=== PATIENT | female | born 1990 | race Two or more races ===

== ENCOUNTER 2023-11-24 11:49 | Emergency (ER) | payer BC ==
[~2023-11-24] VITALS: Ht 154.9 cm; Wt 52.6 kg
[2023-11-24 11:55] VITALS: O2SAT 99
[2023-11-24] MEDS ORDERED: HYDROCODONE/APAP 5-325MG TABLET ONE (12:16)
[2023-11-24] MEDS: HYDROCODONE/APAP 5-325MG TABLET PO ONE (12:17)
[2023-11-24 12:24] LABS: BASOPHILS % (AUTO) 0.4 % (0.0-2.0); EOSINOPHILS # (AUTO) 0.1 K/uL (0.0-0.7); EOSINOPHILS % (AUTO) 0.6 % (0.0-7.0); HEMATOCRIT 40.1 % (31.2-41.9); LYMPHOCYTES # (AUTO) 1.6 K/uL (0.8-4.8); MEAN CORPUSCULAR HEMOGLOBIN 26.8 uug (24.7-32.8); MEAN CORPUSCULAR HGB CONC 32 g/dL (32.3-35.6); MONOCYTES # (AUTO) 0.8 K/uL (0.1-1.30); MONOCYTES % (AUTO) 7.9 % (0.0-11.0); NEUTROPHILS # (AUTO) 8.1 K/uL (1.8-8.9); NEUTROPHILS % (AUTO) 76.1 % (38.5-71.5); PLATELET COUNT (AUTO) 207 K/uL (179-408); RED BLOOD CELL COUNT(AUTO) 4.84 MIL/uL (3.63-4.92); RED CELL DISTRIBUTION WIDTH 13.1 % (12.3-17.7); WHITE BLOOD COUNT (AUTO) 10.6 K/uL (3.8-11.8)
[2023-11-24 12:36] LABS: CALCIUM 9.4 mg/dL (8.5-10.1); CARBON DIOXIDE 28 mmol/L (21-32); CHLORIDE 102 mmol/L (98-107); CREATININE 0.5 mg/dL (0.6-1.3); GLUCOSE 96 mg/dL (74-106); POTASSIUM 3.9 mmol/L (3.5-5.1); SODIUM SERUM 137 mmol/L (136-145); UREA NITROGEN, BLOOD 6 mg/dL (7-18)
[2023-11-24 12:39] LABS: DIFFERENTIAL COMMENT 1
[2023-11-24 12:45] LABS: *BILIRUBIN,URIN NEGATIVE (NEGATIVE); *BLOOD, URINE 3+ (NEGATIVE); *CLARITY,URINE CLEAR (CLEAR); *COLOR,URINE YELLOW (YELLOW); *KETONES,URINE NEGATIVE (NEGATIVE); *PROTEIN,URINE NEGATIVE (NEGATIVE); *UROBILINOGEN,URINE 0.2 E.U./dl (NORMAL); LEUKOCYTE ESTERASE ,URINE 1+ (NEGATIVE); NITRITE, URINE NEGATIVE (NEGATIVE); PH,URINE 6.5 (5.0-8.0); UGLUCOSE NEGATIVE (NEGATIVE)
[2023-11-24 12:53] LABS: PREGNANCY TEST SERUM QUAN < 1 miul/L (0-6)
[2023-11-24] MEDS ORDERED: SULF1TAB48 PO (13:26)
[2023-11-24] MEDS ORDERED: PHEN-704 PO (13:26)
[2023-11-24] MEDS ORDERED: ACET1TAB23 PO (13:26)
[2023-11-24] MEDS ORDERED: PHENAZOPYRIDINE HCL 100 MG TABLET ONE (13:28)
[2023-11-24] MEDS ORDERED: SULFAMETH/TRIMETH 800/160 MG TABLET ONE (13:28)
[2023-11-24] MEDS: SULFAMETH/TRIMETH 800/160 MG TABLET PO ONE (13:29)
[2023-11-24] MEDS: PHENAZOPYRIDINE HCL 100 MG TABLET PO ONE (13:29)
--- NOTE | 2023-11-24 13:32 | NUR ---
Patient discharged to home in stable condition. Written and verbal after care instructions given. Patient verbalizes understanding of instructions. Stressed follow up or return to ER for worsening s/s.
[2023-11-24 15:17] LABS: BACTERIA,URINE FEW /HPF (NONE SEEN); SQUAMOUS EPITHELIAL CELL,UR FEW /HPF (NONE SEEN)
== END 2023-11-24 13:42 | disposition home or self-care (01) ==
LOC: ER 11:50
DX: N30.90 Cystitis, unspecified without hematuria (principal); R10.2 Pelvic and perineal pain; Z79.1 Long term (current) use of non-steroidal anti-inflammatories (NSAID); Z79.899 Other long term (current) drug therapy
CPT/HCPCS: 36415; 76856; 85025; A4606; A4663

== ENCOUNTER 2023-12-18 17:33 | Emergency (ER) | payer BC ==
[~2023-12-18] VITALS: Ht 154.9 cm; Wt 51.3 kg
[~2023-12-18 17:33] MED LIST: ACET1TAB23 PO; PHEN-704 PO; SULF1TAB48 PO
[2023-12-18 17:52] LABS: BASOPHILS % (AUTO) 0.3 % (0.0-2.0); EOSINOPHILS # (AUTO) 0.1 K/uL (0.0-0.7); EOSINOPHILS % (AUTO) 1.1 % (0.0-7.0); HEMATOCRIT 35.8 % (31.2-41.9); HEMOGLOBIN 11.6 g/dL (10.9-14.3); LYMPHOCYTES # (AUTO) 1.6 K/uL (0.8-4.8); LYMPHOCYTES % (AUTO) 28.5 % (20.5-51.5); MEAN CORPUSCULAR HEMOGLOBIN 26.9 uug (24.7-32.8); MEAN CORPUSCULAR HGB CONC 33 g/dL (32.3-35.6); MEAN CORPUSCULAR VOLUME 82.6 fL (75.5-95.3); MONOCYTES # (AUTO) 0.6 K/uL (0.1-1.30); MONOCYTES % (AUTO) 11.4 % (0.0-11.0); NEUTROPHILS # (AUTO) 3.3 K/uL (1.8-8.9); NEUTROPHILS % (AUTO) 58.7 % (38.5-71.5); PLATELET COUNT (AUTO) 188 K/uL (179-408); RED BLOOD CELL COUNT(AUTO) 4.33 MIL/uL (3.63-4.92); WHITE BLOOD COUNT (AUTO) 5.7 K/uL (3.8-11.8)
[2023-12-18 17:53] LABS: DIFFERENTIAL COMMENT 1
[2023-12-18 18:11] LABS: ALBUMIN 4.2 g/dL (3.4-5.0); BILIRUBIN,DIRECT 0.1 mg/dL (0.0-0.2); BILIRUBIN,TOTAL 0.2 mg/dL (0.2-1.0); CALCIUM 9.3 mg/dL (8.5-10.1); CREATININE 0.6 mg/dL (0.6-1.3); POTASSIUM 3.3 mmol/L (3.5-5.1); TOTAL PROTEIN, SERUM 7.6 g/dL (6.4-8.2)
[2023-12-18 18:27] LABS: *BILIRUBIN,URIN NEGATIVE (NEGATIVE); *BLOOD, URINE NEGATIVE (NEGATIVE); *CLARITY,URINE CLEAR (CLEAR); *COLOR,URINE YELLOW (YELLOW); *KETONES,URINE TRACE (NEGATIVE); *PROTEIN,URINE NEGATIVE (NEGATIVE); *UROBILINOGEN,URINE 0.2 E.U./dl (NORMAL); LEUKOCYTE ESTERASE ,URINE NEGATIVE (NEGATIVE); NITRITE, URINE NEGATIVE (NEGATIVE); PH,URINE 7.5 (5.0-8.0); UGLUCOSE NEGATIVE (NEGATIVE)
[2023-12-18 18:28] LABS: RBC,URINE 0-3 /HPF (0-3); WBC,URINE 0-3 /HPF (0-3)
[2023-12-18 18:30] LABS: *URINE HCG, QUAL NEGATIVE (NEGATIVE)
[2023-12-18] MEDS ORDERED: IBUP-1955 PO (18:43)
[2023-12-18 20:23] VITALS: BP 128/82; TEMP 97.4; O2SAT 99
== END 2023-12-18 20:10 | disposition home or self-care (01) ==
LOC: ER 17:35
DX: M54.50 Low back pain, unspecified (principal); R10.2 Pelvic and perineal pain; Z79.1 Long term (current) use of non-steroidal anti-inflammatories (NSAID); Z79.899 Other long term (current) drug therapy
CPT/HCPCS: 36415; 83690; 84703; 85025; A4606; A4663

== ENCOUNTER 2024-02-29 18:39 | Emergency (ER) | payer BC, MEDICAID ==
[~2024-02-29] VITALS: Ht 165.1 cm; Wt 54.4 kg
[~2024-02-29 18:39] MED LIST changes: +IBUP-1955 PO
[2024-02-29 20:17] LABS: *BILIRUBIN,URIN NEGATIVE (NEGATIVE); *CLARITY,URINE CLEAR (CLEAR); *COLOR,URINE YELLOW (YELLOW); *KETONES,URINE NEGATIVE (NEGATIVE); *PROTEIN,URINE NEGATIVE (NEGATIVE); *UROBILINOGEN,URINE 0.2 E.U./dl (NORMAL); LEUKOCYTE ESTERASE ,URINE TRACE (NEGATIVE); NITRITE, URINE NEGATIVE (NEGATIVE); PH,URINE 6.5 (5.0-8.0); UGLUCOSE NEGATIVE (NEGATIVE)
[2024-02-29 20:27] LABS: *BLOOD, URINE TRACE (NEGATIVE)
[2024-02-29 20:46] LABS: *URINE HCG, QUAL NEGATIVE (NEGATIVE)
[2024-02-29 20:58] LABS: BACTERIA,URINE NONE SEEN /HPF (NONE SEEN); SQUAMOUS EPITHELIAL CELL,UR FEW /HPF (NONE SEEN); WBC,URINE 0-3 /HPF (0-3)
[2024-03-01 01:19] LABS: BASOPHILS % (AUTO) 0.2 % (0.0-2.0); EOSINOPHILS # (AUTO) 0.1 K/uL (0.0-0.7); EOSINOPHILS % (AUTO) 0.9 % (0.0-7.0); HEMATOCRIT 32.9 % (31.2-41.9); HEMOGLOBIN 10.9 g/dL (10.9-14.3); LYMPHOCYTES # (AUTO) 1.6 K/uL (0.8-4.8); LYMPHOCYTES % (AUTO) 18.8 % (20.5-51.5); MEAN CORPUSCULAR HEMOGLOBIN 27.3 uug (24.7-32.8); MEAN CORPUSCULAR HGB CONC 33 g/dL (32.3-35.6); MEAN CORPUSCULAR VOLUME 82.2 fL (75.5-95.3); MONOCYTES # (AUTO) 0.9 K/uL (0.1-1.30); MONOCYTES % (AUTO) 11.5 % (0.0-11.0); NEUTROPHILS # (AUTO) 5.6 K/uL (1.8-8.9); NEUTROPHILS % (AUTO) 68.6 % (38.5-71.5); PLATELET COUNT (AUTO) 197 K/uL (179-408); RED CELL DISTRIBUTION WIDTH 13.4 % (12.3-17.7); WHITE BLOOD COUNT (AUTO) 8.2 K/uL (3.8-11.8)
[2024-03-01 01:22] LABS: DIFFERENTIAL COMMENT 1
[2024-03-01 01:25] LABS: ERYTHROCYTE SEDIMENTATION RATE 2 MM/HR (0-20)
[2024-03-01 01:29] LABS: CALCIUM 9.3 mg/dL (8.5-10.1); CREATININE 0.6 mg/dL (0.6-1.3); POTASSIUM 4.1 mmol/L (3.5-5.1)
[2024-03-01 01:34] LABS: ALBUMIN 3.8 g/dL (3.4-5.0); BILIRUBIN,TOTAL 0.4 mg/dL (0.2-1.0); TOTAL PROTEIN, SERUM 7.2 g/dL (6.4-8.2)
[2024-03-01 01:40] LABS: C-REACTIVE PROTEIN 0.06 mg/dL (0.00-0.30)
[2024-03-01] MEDS ORDERED: KETOROLAC TROMETHAMINE 30 MG INJ ONE (02:21)
[2024-03-01] MEDS ORDERED: ACETAMINOPHEN 325 MG TABLET ONE (02:21)
[2024-03-01] MEDS: ACETAMINOPHEN 325 MG TABLET PO ONE (02:32)
[2024-03-01] MEDS: KETOROLAC TROMETHAMINE 30 MG INJ IM ONE (02:32)
[2024-03-01] MEDS ORDERED: CYCL5TAB PO (06:13)
[2024-03-01] MEDS ORDERED: NAPR-1009 PO (06:13)
[2024-03-01 06:29] VITALS: BP 115/72; TEMP 208; O2SAT 98
== END 2024-03-01 06:29 | disposition home or self-care (01) ==
LOC: ER 20:00
DX: G89.29 Other chronic pain (principal); R10.32 Left lower quadrant pain; M54.6 Pain in thoracic spine; R10.2 Pelvic and perineal pain; M25.519 Pain in unspecified shoulder; Z79.899 Other long term (current) drug therapy
CPT/HCPCS: 99285; 81001; 84703; 71250; 80053; 83690; 85025; 85651; 86140; 36415; 74176; 96372; J1885; A4606; A4663

== ENCOUNTER 2024-11-18 15:30 | Emergency (ER) | payer MEDICAID ==
[~2024-11-18] VITALS: Ht 154.9 cm; Wt 54.4 kg
[~2024-11-18 15:30] MED LIST changes: +CYCL5TAB PO; +NAPR-1009 PO
[2024-11-18 16:08] VITALS: BP 123/69
[2024-11-18 18:25] LABS: PLATELET COUNT (AUTO) 233 K/uL (179-408); RED BLOOD CELL COUNT(AUTO) 4.54 MIL/uL (3.63-4.92); RED CELL DISTRIBUTION WIDTH 13.6 % (12.3-17.7); WHITE BLOOD COUNT (AUTO) 7.4 K/uL (3.8-11.8)
[2024-11-18 18:32] LABS: CREATININE 0.6 mg/dL (0.6-1.3); SODIUM SERUM 143 mmol/L (136-145); UREA NITROGEN, BLOOD 8 mg/dL (7-18)
[2024-11-18] MEDS ORDERED: OXYCODONE/APAP 5-325 MG TABLET ONE (18:39)
[2024-11-18] MEDS: OXYCODONE/APAP 5-325 MG TABLET PO ONE (18:43)
[2024-11-18 18:48] LABS: PREGNANCY TEST SERUM QUAN < 1 miul/L (0-6)
[2024-11-18 18:59] LABS: *BILIRUBIN,URIN NEGATIVE (NEGATIVE); *BLOOD, URINE NEGATIVE (NEGATIVE); *CLARITY,URINE CLEAR (CLEAR); *COLOR,URINE YELLOW (YELLOW); *KETONES,URINE NEGATIVE (NEGATIVE); *PROTEIN,URINE NEGATIVE (NEGATIVE); *UROBILINOGEN,URINE 0.2 E.U./dl (NORMAL); LEUKOCYTE ESTERASE ,URINE 1+ (NEGATIVE); NITRITE, URINE NEGATIVE (NEGATIVE); UGLUCOSE NEGATIVE (NEGATIVE)
[2024-11-18] MEDS ORDERED: CLOT15CR5 TP (20:49)
[2024-11-18] MEDS ORDERED: CEPH500C2 PO (20:49)
[2024-11-18] MEDS ORDERED: PHEN-894 PO (20:50)
[2024-11-18 20:59] VITALS: BP 124/71; TEMP 98; O2SAT 98
[2024-11-20 21:07] LABS: *TRIC.VAG. NAA Negative (Negative)
[2024-11-21 01:06] LABS: *CHLAMYDIA NAA Negative (Negative); *GC NAA Negative (Negative)
== END 2024-11-18 20:55 | disposition home or self-care (01) ==
LOC: ER 15:42
DX: G89.29 Other chronic pain (principal); R10.2 Pelvic and perineal pain; N76.2 Acute vulvitis; R30.0 Dysuria; Z87.442 Personal history of urinary calculi
CPT/HCPCS: 36415; 85025; 87086; 87491; A4606; A4663